=== PATIENT | female | born 1945 | race Caucasian/White ===

== ENCOUNTER 2018-05-10 11:10 | Emergency (ER) | payer MEDICARE, OTHER ==
[2018-05-10 12:22] LABS: ABSOLUTE EOSINOPHILS # (AUTO) 0.2 10^3/uL (0.0-0.6); ABSOLUTE LYMPHOCYTES (AUTO) 2.8 10^3/uL (0.5-4.7); ABSOLUTE MONOCYTES (AUTO) 0.6 10^3/uL (0.1-1.4); ABSOLUTE NEUT (AUTO) 4.9 10^3/uL (1.7-8.2); BASOPHILS % (AUTO) 0.4 % (0-2); EOSINOPHILS % (AUTO) 2.8 % (0-6); HEMOGLOBIN 13.6 g/dL (12.0-15.5); LYMPHOCYTES % (AUTO) 32.9 % (13-45); MEAN CORPUSCULAR HEMOGLOBIN 29.5 pg (27.0-33.4); MEAN CORPUSCULAR VOLUME 87 fl (80-97); PLATELET COUNT 171 10^3/uL (150-450); RED CELL DISTRIBUTION WIDTH 14.4 % (11.5-14.0); SEGMENTED NEUTROPHILS % (AUTO) 56.9 % (42-78); TOTAL CELLS COUNTED % (AUTO) 100 %; WHITE BLOOD COUNT 8.6 10^3/uL (4.0-10.5)
[2018-05-10 12:37] LABS: ALANINE AMINOTRANSFERASE 23 U/L (9-52); ALBUMIN 3.9 g/dL (3.5-5.0); ALKALINE PHOSPHATASE 78 U/L (38-126); ANION GAP 13 (5-19); ASPARTATE AMINO TRANSFERASE 18 U/L (14-36); BILIRUBIN,DIRECT 0.2 mg/dL (0.0-0.4); BILIRUBIN,TOTAL 0.9 mg/dL (0.2-1.3); BLOOD UREA NITROGEN 24 mg/dL (7-20); CALCIUM 9.6 mg/dL (8.4-10.2); CARBON DIOXIDE 25 mmol/L (22-30); CHLORIDE 106 mmol/L (98-107); GLUCOSE 90 mg/dL (75-110); POTASSIUM 3.9 mmol/L (3.6-5.0); SODIUM 143.8 mmol/L (137-145); TOTAL PROTEIN 6.2 g/dL (6.3-8.2)
[2018-05-10 12:44] LABS: APPEARANCE,URINE SLIGHTLY-CLOUDY; BILIRUBIN,URINE NEGATIVE (NEGATIVE); COLOR,URINE YELLOW; GLUCOSE, URINE NEGATIVE (NEGATIVE); KETONES,URINE NEGATIVE (NEGATIVE); LEUKOCYTE ESTERASE,URINE TRACE (NEGATIVE); NITRITE,URINE NEGATIVE (NEGATIVE); PROTEIN,URINE NEGATIVE (NEGATIVE); URINE SPECIFIC GRAVITY 1.021
[2018-05-10 13:03] LABS: URINE AMPHETAMINES SCREEN NEGATIVE; URINE BARBITURATES SCREEN NEGATIVE; URINE BENZODIAZEPINES SCREEN NEGATIVE; URINE COCAINE SCREEN NEGATIVE; URINE MARIJUANA (THC) SCREEN NEGATIVE; URINE METHADONE SCREEN NEGATIVE; URINE PHENCYCLIDINE SCREEN NEGATIVE
--- NOTE | 2018-05-10 14:02 | RADIOLOGY REPORT (SQ) ---
EXAM DESCRIPTION: CHEST SINGLE VIEW COMPLETED DATE/TIME: 05/10/2018 12:57 pm REASON FOR STUDY: Altered mental charles COMPARISON: None. EXAM PARAMETERS: NUMBER OF VIEWS: One view. TECHNIQUE: Single frontal radiographic view of the chest acquired. RADIATION DOSE: NA LIMITATIONS: None. FINDINGS: LUNGS AND PLEURA: No opacities, masses or pneumothorax. No pleural effusion. MEDIASTINUM AND HILAR STRUCTURES: No masses. Contour normal. HEART AND VASCULAR STRUCTURES: Heart normal in size. Normal vasculature. BONES: No acute findings. HARDWARE: None in the chest. OTHER: No other significant finding. IMPRESSION: NO ACUTE RADIOGRAPHIC FINDING IN THE CHEST. TECHNICAL DOCUMENTATION: JOB ID: [id number] [employer]- All Rights Reserved Reading location - IP/workstation name: [email or web address]
--- NOTE | 2018-05-10 14:08 | RADIOLOGY REPORT (SQ) ---
EXAM DESCRIPTION: CT HEAD WITHOUT COMPLETED DATE/TIME: 05/10/2018 12:55 pm REASON FOR STUDY: Altered mental status COMPARISON: None. TECHNIQUE: Axial images acquired through the brain without intravenous contrast. Images reviewed wi th bone, brain and subdural windows. Additional sagittal and coronal reconstructions were generated. Images stored on PACS. All CT scanners at this facility use dose modulation, iterative reconstruction, and/or weight based d osing when appropriate to reduce radiation dose to as low as reasonably achievable (ALARA). [facility]: Dose Right [facility]: CareDose [facility]: Dose Right [facility]: Teradose 4D [facility]: Smart Epom RADIATION DOSE: CT Rad equipment meets quality standard of care and radiation dose reduction techniq ues were employed. CTDIvol: 53.2 mGy. DLP: 1017 mGy-cm. mGy. LIMITATIONS: None. FINDINGS: VENTRICLES: Ventricles are slightly prominent in related to the cortical sulci. CEREBRUM: No masses. No hemorrhage. No midline shift. No evidence for acute infarction. Normal gra y/white matter differentiation. No areas of low density in the white matter. Small area of encephalo malacia of the inferior right frontal lobe which may be sequelae of prior infarct or sequelae of prio r trauma. CEREBELLUM: No masses. No hemorrhage. No alteration of density. No evidence for acute infarction. EXTRAAXIAL SPACES: No fluid collections. No masses. ORBITS AND GLOBE: No intra- or extraconal masses. Normal contour of globe without masses. CALVARIUM: No acute fracture. Chronic appearing fracture of the right occipital bone. Postsurgical changes of the calvarium. PARANASAL SINUSES: No fluid or mucosal thickening. SOFT TISSUES: No mass or hematoma. OTHER: No other significant finding. IMPRESSION: 1. Ventricles are slightly prominent in relation to the cortical sulci. Findings may be secondary to early involutional changes or normal pressure hydrocephalus. Correlate clinically. Otherwise, no a cute intracranial findings. 2. Small area of encephalomalacia of the inferior right frontal lobe, sequelae of prior infarct or in jury. EVIDENCE OF ACUTE STROKE: NO. COMMENT: Quality ID # [id number]: Final reports with documentation of one or more dose reduction techniques (e.g., Automated exposure control, adjustment of the mA and/or kV according to patient size, use of iterative reconstruction technique) TECHNICAL DOCUMENTATION: JOB ID: [id number]- All Rights Reserved Reading location - IP/workstation name: [email or web address]
--- NOTE | 2018-05-10 14:11 | EKG REPORT ---
SEVERITY:- BORDERLINE ECG - SINUS RHYTHM BORDERLINE T ABNORMALITIES, INFERIOR LEADS : Confirmed by: Boston Goel MD 10-May-2018 14:10:45
[2018-05-10] MEDS ORDERED: NORMAL SALINE 1000 ML 1,000 ML IV ONE (14:24)
--- NOTE | 2018-05-10 15:55 | ER Document Report ---
ED General - General Chief Complaint: Altered Mental Status Stated Complaint: URINARY PROBLEM Time Seen by Provider: 05/10/18 11:28 Mode of Arrival: Medic Information source: Outside Facility Records Notes: Patient resides at a assisted living facility called at the [facility]. She was sent here by the nursing staff because of altered mental status. Accompany her is that he had a nursing Ms. Wilkerson. She tells me she is responsible for her mostly while she is at the facility. She knows patient well. She informed me that the nursing staff contacted her once they sent her to the hospital told her that she was just acting different. Ms. Wilkerson states that patient is diagnosed with dementia and she is acting her baseline with the exception of she is more hyper. She has been rambling more than usual. In the last time she did this she had a urinary tract infection. So they decided to send her to the hospital without any advice from the nursing a p supervisor Ms. melgoza and she is here for that so reason to have her checked out. Even though patient is acting slightly altered she is also acting her baseline. TRAVEL OUTSIDE OF THE [place] IN LAST 30 DAYS: No - HPI Onset: This morning Onset/Duration: Gradual, Worse Severity: Moderate Pain Level: 3 Context: Altered mental status in the sense of hyper verbalization. Patient is rambling consistently Exacerbated by: Denies Relieved by: Denies Similar symptoms previously: Yes Recently seen / treated by doctor: No - Related Data Allergies/Adverse Reactions: vancomycin Allergy (Verified 05/10/18 12:33) NSAIDS (Non-Steroidal Anti-Inflamma Adverse Reaction (Verified 05/10/18 12:33) Past Medical History - Social History Smoking Status: Unknown if Ever Smoked Cigarette use (# per day): No Chew tobacco use (# tins/day): No Smoking Education Provided: No Frequency of alcohol use: None Drug Abuse: None Family History: Reviewed & Not Pertinent Patient has suicidal ideation: No Patient has homicidal ideation: No Renal/ Medical History: Denies: Hx Peritoneal Dialysis Review of Systems - Review of Systems Constitutional: No symptoms reported EENT: No symptoms reported Cardiovascular: No symptoms reported Respiratory: No symptoms reported Gastrointestinal: No symptoms reported Genitourinary: No symptoms reported Female Genitourinary: No symptoms reported Musculoskeletal: No symptoms reported Skin: No symptoms reported Hematologic/Lymphatic: No symptoms reported Neurological/Psychological: See HPI, Headaches -: Yes All other systems reviewed and negative Physical Exam - Vital signs Vitals: Resp Pulse Ox 15 98 05/10/18 11:25 05/10/18 11:25 Interpretation: Hypotensive, Bradycardic - Notes Notes: PHYSICAL EXAMINATION: GENERAL: Patient is a well-nourished well-developed obese female who is in no apparent distress at this time. Patient is very hyperverbal she is rambling and occasionally makes sense and then after a few minutes she is talking gibberish. HEAD: Atraumatic, normocephalic. EYES: Pupils equal round and reactive to light, extraocular movements intact, conjunctiva are normal. ENT: Nares patent, oropharynx clear without exudates. Moist mucous membranes. NECK: Normal range of motion, supple without lymphadenopathy LUNGS: Breath sounds clear to auscultation bilaterally and equal. No wheezes rales or rhonchi. HEART: Regular rate and rhythm without murmurs ABDOMEN: Soft, nontender, nondistended abdomen. No guarding, no rebound. No masses appreciated. Female : deferred Musculoskeletal: Normal range of motion, no pitting or edema. No cyanosis. NEUROLOGIC Normal speech, normal gait. Normal sensory, motor exams PSYCH: Hyper, anxious SKIN: Warm, Dry, normal turgor, no rashes or lesions noted. Course - Re-evaluation Re-evalutation: 05/10/18 16:01 Patient's course was really uneventful here. The nursing a p supervisor informed me that really did not patient is baseline on her dementia although she is more hyper. And the last time that she was like that she had a UTI. We checked her urine and it was negative. The labs all look very good. Chest x-ray was negative and CT of the head showed no acute findings. Normal the head nursing a p supervisor takes care of patient mostly stated that patient had been in to taking lots of pain medications up to 3 weeks ago. Her primary finally referred her to pain management where they have grab the range and put her on extended release OxyContin 1 tab in the morning 1 tab in the evening and no more. Rhea tells me that nurses have told her that patient's been indicating that she wants more pain medication if she has to she will tell me that she has to go to ER. Patient has not asked for any pain medication while here in the ER. She has finally calmed down without any aid on our part of narcotics or any type of intervention. She is sleeping comfortably right now. At present time I feel it is safe to send her back however I discussed the case with Dr. Alexus Sanchez and she would make sure that the nursing staff at the facility felt comfortable taking patient back or if they wanted us to work her up more for as a [facility] psych. I emphasized this point to him is normal and she was in agreement that she really would rather have patient back at the facility. She stated that once the urine came back negative and patient calmed herself down that there was no reason to have her stay here she was not a threat to herself nor anyone else at the facility. I totally agree with this brief description as presented by Ms. Wilkerson. Believe patient can safely return to her residence without any intervention on our part. I have informed her however that if any changes she can return her to ER we can re-evaluate her at that point. - Vital Signs Vital signs: Temp Pulse Resp BP Pulse Ox 17 97/51 L 92 05/10/18 14:01 05/10/18 14:01 05/10/18 14:01 - Laboratory Result Diagrams: 05/10/18 12:00 05/10/18 12:00 Laboratory results interpreted by me: 05/10/18 05/10/18 05/10/18 12:00 12:00 12:23 RDW 14.4 H BUN 24 H Creatinine 1.42 H Est GFR ( Amer) 44 L Est GFR (Non-Af Amer) 36 L Total Protein 6.2 L Urine Urobilinogen 2.0 H Ur Leukocyte Esterase TRACE H Discharge - Discharge Clinical Impression: Dementia Qualifiers: Dementia type: unspecified type Dementia behavioral disturbance: with behavioral disturbance Qualified Code(s): F03.91 - Unspecified dementia with behavioral disturbance Condition: Stable Disposition: HOME-ASSISTED LIVING Instructions: Anxiety ([facility]) Additional Instructions: As we discussed patient can be returned to her facility is normal and the nurse a p supervisor will oversee patient when she gets there. There is no changes in medications at this time. Patient has no UTI was no antibiotics will be added either. Should you have any concerns or problems anything changes or if the patient seems to be declining even more return to ER for recheck. Referrals: DARLING KELLY MD [Primary Care Provider] - Follow up as needed
[2018-05-10 16:41] VITALS: BP 125/65
== END 2018-05-10 16:30 | disposition home health service (06) ==
LOC: ER 11:10
DX: F03.91 Unspecified dementia, unspecified severity, with behavioral disturbance (principal)
CPT/HCPCS: 93005; 99285; 96360; 51701; 36415; 83735; 85025; 80053; 81001; 84484; 80307; 71045; 70450; 93010; J7030